=== PATIENT | female | born 1955 | race Caucasian/White ===

== ENCOUNTER → 2019-07-06 | Outpatient (CLI) | payer MEDICARE ==
[~2019-07-06] MED LIST: AMLODIPINE PO; BENA PO; Ecotrin325 MG PO
== END | disposition home or self-care (01) ==
LOC: RAD 07-01 13:30
DX: M81.0 Age-related osteoporosis without current pathological fracture (principal); N95.9 Unspecified menopausal and perimenopausal disorder; Z79.899 Other long term (current) drug therapy; Z90.710 Acquired absence of both cervix and uterus

== ENCOUNTER → 2019-08-13 | Outpatient (CLI) | payer MEDICARE | END | disposition home or self-care (01) | LOC: CT 10:00 | DX: R22.2 Localized swelling, mass and lump, trunk (principal) ==

== ENCOUNTER → 2020-04-15 | Outpatient (CLI) | payer MEDICARE ==
[2020-04-15 09:54] LABS: BASO # 0.1 10*3/uL (0.0-0.1); BASO % 1.3 % (0.0-1.0); EOS # 0.2 10*3/uL (0.0-0.4); EOS % 2.9 % (1.0-4.0); HEMATOCRIT 41.8 % (37.0-47.0); LYMPH % 29.4 % (27.0-41.0); MEAN CELL VOLUME 92.9 fl (81.0-99.0); MEAN CORPUSCULAR HGB 30.9 pg (27.0-31.0); MEAN CORPUSCULAR HGB CONC 33.3 g/dl (33.0-37.0); MEAN PLATELET VOLUME 9.4 fl (9.6-12.3); MONO # 0.4 10*3/uL (0.1-1.0); MONO % 6.1 % (3.0-9.0); NEUT # 4.2 10*3/uL (2.3-7.9); NEUT % 60.2 % (47.0-73.0); PLATELET COUNT AUTOMATED 327 10*3/uL (130-400); RED CELL DISTRI WIDTH 12.3 % (0-14.5); WHITE BLOOD COUNT 6.9 10*3/uL (4.8-10.8)
[2020-04-15 10:29] LABS: ALKALINE PHOSPHATASE 109 U/L (45-117); BILIRUBIN, DIRECT 0.1 mg/dL (0.0-0.2); BUN 11 mg/dl (7-24); CHLORIDE 108 mmol/L (98-107); CHOLESTEROL 183 mg/dL (<200); CREATININE 0.79 mg/dL (0.55-1.02); HDL CHOLESTEROL 55 mg/dl (40-60); LDL CHOLESTEROL 107 mg/dL (9-159); POTASSIUM 3.9 mmol/L (3.5-5.1); SGOT/AST 15 IU/L (3-35); SGPT/ALT 25 U/L (12-78); SODIUM 140 mmol/L (136-145); THYROXINE (T4) TOTAL 9.8 ug/dl (4.8-13.9); TOTAL PROTEIN 7.6 gm/dL (6.4-8.2); TRIGLYCERIDES 107 mg/dl (<150); VLDL CHOLESTEROL 21 mg/dL (6-40)
== END | disposition home or self-care (01) ==
LOC: LAB 09:18
PROVIDERS: Family Medicine
DX: I10 Essential (primary) hypertension (principal); E04.1 Nontoxic single thyroid nodule

== ENCOUNTER → 2020-09-19 | Outpatient (CLI) | payer MEDICARE ==
[2020-09-19 14:05] LABS: BASO # 0.1 10*3/uL (0.0-0.1); BASO % 1.1 % (0.0-1.0); EOS # 0.3 10*3/uL (0.0-0.4); EOS % 3.8 % (1.0-4.0); HEMATOCRIT 41.2 % (37.0-47.0); LYMPH # 2.6 10*3/uL (1.3-4.4); MEAN CELL VOLUME 93.4 fl (81.0-99.0); MEAN CORPUSCULAR HGB 30.4 pg (27.0-31.0); MEAN CORPUSCULAR HGB CONC 32.5 g/dl (33.0-37.0); MEAN PLATELET VOLUME 9.2 fl (9.6-12.3); MONO # 0.5 10*3/uL (0.1-1.0); MONO % 6.6 % (3.0-9.0); NEUT # 4.3 10*3/uL (2.3-7.9); NEUT % 54.5 % (47.0-73.0); PLATELET COUNT AUTOMATED 318 10*3/uL (130-400); RED BLOOD COUNT 4.41 10*6/uL (4.10-5.10); RED CELL DISTRI WIDTH 12.2 % (0-14.5); WHITE BLOOD COUNT 7.9 10*3/uL (4.8-10.8)
[2020-09-19 14:21] LABS: ALKALINE PHOSPHATASE 130 U/L (45-117); BILIRUBIN, DIRECT 0.1 mg/dL (0.0-0.2); BUN 10 mg/dl (7-24); CHLORIDE 108 mmol/L (98-107); CREATININE 0.76 mg/dL (0.55-1.02); SGOT/AST 14 IU/L (3-35); SGPT/ALT 21 U/L (12-78); SODIUM 142 mmol/L (136-145); TOTAL PROTEIN 7.4 gm/dL (6.4-8.2)
== END | disposition home or self-care (01) ==
LOC: LAB 13:48
PROVIDERS: ATTEND Family Medicine
DX: R10.9 Unspecified abdominal pain (principal)

== ENCOUNTER → 2020-10-28 | Outpatient (CLI) | payer MEDICARE | END | disposition home or self-care (01) | LOC: RAD 10:53 | PROVIDERS: ATTEND Family Medicine | DX: M25.559 Pain in unspecified hip (principal) ==

== ENCOUNTER → 2020-11-01 | Outpatient (CLI) | payer MEDICARE | END | disposition home or self-care (01) | LOC: LAB 00:25 → CT 10:00 → LAB 10:00 | PROVIDERS: ATTEND Family Medicine | DX: R10.9 Unspecified abdominal pain (principal) ==

== ENCOUNTER → 2022-04-16 | Outpatient (CLI) | payer MEDICARE ==
[2022-04-16 08:46] LABS: BASO # 0.1 10*3/uL (0.0-0.1); BASO % 1.1 % (0.0-1.0); EOS # 0.4 10*3/uL (0.0-0.4); EOS % 5.9 % (1.0-4.0); HEMATOCRIT 40.7 % (37.0-47.0); LYMPH # 1.9 10*3/uL (1.3-4.4); LYMPH % 29.7 % (27.0-41.0); MEAN CELL VOLUME 93.3 fl (81.0-99.0); MEAN CORPUSCULAR HGB 31.2 pg (27.0-31.0); MEAN CORPUSCULAR HGB CONC 33.4 g/dl (33.0-37.0); MEAN PLATELET VOLUME 9.6 fl (9.6-12.3); MONO # 0.5 10*3/uL (0.1-1.0); MONO % 7.5 % (3.0-9.0); NEUT # 3.6 10*3/uL (2.3-7.9); NEUT % 55.6 % (47.0-73.0); PLATELET COUNT AUTOMATED 304 10*3/uL (130-400); RED BLOOD COUNT 4.36 10*6/uL (4.10-5.10); RED CELL DISTRI WIDTH 12.3 % (0-14.5); WHITE BLOOD COUNT 6.4 10*3/uL (4.8-10.8)
[2022-04-16 09:08] LABS: BUN 12 mg/dl (7-24); CHLORIDE 109 mmol/L (98-107); POTASSIUM 3.8 mmol/L (3.5-5.1); SODIUM 143 mmol/L (136-145)
[2022-04-16 09:15] LABS: ALKALINE PHOSPHATASE 108 U/L (45-117); CHOLESTEROL 187 mg/dL (<200); LDL CHOLESTEROL 111 mg/dL (9-159); SGOT/AST 16 IU/L (3-35); SGPT/ALT 19 U/L (12-78); THYROXINE (T4) TOTAL 8.8 ug/dl (4.8-13.9); TRIGLYCERIDES 119 mg/dl (<150)
== END | disposition home or self-care (01) ==
LOC: LAB 07:40
PROVIDERS: ATTEND Family Medicine
DX: M81.0 Age-related osteoporosis without current pathological fracture (principal); E78.5 Hyperlipidemia, unspecified; E55.9 Vitamin D deficiency, unspecified; E03.9 Hypothyroidism, unspecified; Z79.899 Other long term (current) drug therapy; R53.83 Other fatigue

== ENCOUNTER → 2022-08-03 | Outpatient (CLI) | payer MEDICARE | LOC: RAD 07-27 09:25 | PROVIDERS: ATTEND Family Medicine | DX: M81.0 Age-related osteoporosis without current pathological fracture (principal) ==

== ENCOUNTER → 2024-08-05 | Outpatient (CLI) | payer MEDICARE | END | disposition home or self-care (01) | LOC: RAD 12:21 | PROVIDERS: ATTEND Chiropractor | DX: M51.34 Other intervertebral disc degeneration, thoracic region (principal); M25.78 Osteophyte, vertebrae; M47.814 Spondylosis without myelopathy or radiculopathy, thoracic region ==

== ENCOUNTER → 2024-11-12 | Outpatient (CLI) | payer MEDICARE ==
[2024-11-12 10:09] LABS: BASO # 0.1 10*3/uL (0.0-0.1); BASO % 0.7 % (0.0-1.0); EOS # 0.2 10*3/uL (0.0-0.4); EOS % 2.8 % (1.0-4.0); HEMATOCRIT 40.7 % (37.0-47.0); MEAN CELL VOLUME 93.8 fl (81.0-99.0); MEAN CORPUSCULAR HGB 31.1 pg (27.0-31.0); MEAN CORPUSCULAR HGB CONC 33.2 g/dl (33.0-37.0); MEAN PLATELET VOLUME 8.8 fl (9.6-12.3); MONO # 0.5 10*3/uL (0.1-1.0); MONO % 6.4 % (3.0-9.0); NEUT # 4.1 10*3/uL (2.3-7.9); NEUT % 58.1 % (47.0-73.0); PLATELET COUNT AUTOMATED 315 10*3/uL (130-400); RED BLOOD COUNT 4.34 10*6/uL (4.10-5.10); RED CELL DISTRI WIDTH 12.4 % (0-14.5); WHITE BLOOD COUNT 7.1 10*3/uL (4.8-10.8)
[2024-11-12 10:38] LABS: ALKALINE PHOSPHATASE 115 U/L (46-116); BUN 12 mg/dl (9-23); CHLORIDE 105 mmol/L (98-107); CHOLESTEROL 170 mg/dL (<200); LDL CHOLESTEROL 100 mg/dL (9-159); POTASSIUM 4.2 mmol/L (3.4-5.1); SGPT/ALT 16 U/L (5-49); THYROXINE (T4) TOTAL 9.1 ug/dl (4.5-10.9); TOTAL PROTEIN 7.1 gm/dL (6.0-8.0); TRIGLYCERIDES 112 mg/dl (<150)
== END | disposition home or self-care (01) ==
LOC: LAB 09:46
PROVIDERS: ATTEND Family Medicine
DX: I10 Essential (primary) hypertension (principal); E04.1 Nontoxic single thyroid nodule

== ENCOUNTER → 2025-07-13 | Outpatient (CLI) | payer MEDICARE | LOC: LAB 13:19 | PROVIDERS: ATTEND Family Medicine | DX: E04.2 Nontoxic multinodular goiter (principal) ==